=== PATIENT | female | born 1965 | race Two or more races ===

== ENCOUNTER → 2016-04-04 | Outpatient (CLI) | payer MEDICARE, MEDICAID ==
[~2016-04-04] MED LIST: ABIL1TAB5 PO; AMLO5TAB2 PO; BUPIVACAINE HCL 0.25% 30 ML VIAL As Ordered ONE; CYCL10TA PO; CYMB60CA3 PO; FIBE625T PO; HUMA100I3 SC; IBUP80TA PO; INSULADS SC; ISOVUE-M 300 61% 15ML VIAL (Q9967) As Ordered ONE; LIDOCAINE 1% SDV INJ 30 ML VIAL As Ordered ONE; LISI20TA PO; MECL25CH PO; METF1000 PO; METO50TA2 PO; NOVO70VL SC; OMEP20CA3 PO; OXYC10TA12 PO; SIMV20TA2 PO; TRAZ150T14 PO; TRIAMCINOLONE ACETONIDE SUSP 40 MG/ML VIAL (J3301) As Ordered ONE; VITA50003 PO; XIFA550T PO; diazePAM 5 MG TAB As Ordered ONE; oxyCODONE 5MG TAB As Ordered ONE
--- NOTE | 2016-04-04 16:57 | REP ---
SI joint series: Four views. History: Bilateral SI joint injection for pain. 24 seconds of fluoroscopy time is reported. Findings: A sequence of four fluoroscopically obtained intraprocedural spot radiographs document needle position and contrast injection associated with SI joint injection procedure. Signed by Sage Jesus MD 04/05/2016 08:00 A
--- NOTE | 2016-04-08 01:57 | ECWPNPC ---
PATIENT NAME: JAYE STONER : 1965 GENDER: FEMALE VISIT DATE: 04/04/2016 DISCHARGE DATE: 04/04/16 1442 VISIT LOCKED DATE TIME: PHYSICIAN: HERMES GAONA RESOURCE: HERMES GAONA REASON FOR APPOINTMENT 1. SIJ HISTORY OF PRESENT ILLNESS HISTORY OF PRESENT ILLNESS: PAIN THE PATIENT DESCRIBES THE PAIN... FALL RISK SCREENING: SCREENING :NO FALLS IN THE PAST YEAR CURRENT MEDICATIONS TAKING GLYCOLAX POWDER ORALLY TWICE DAILY, NOTES: NONE RECENT TAKING FIBER COMPLETE TABLET ORALLY DAILY, NOTES: 04-03-16 0800 TAKING PROBIOTIC CAPSULE ORALLY DAILY, NOTES: NONE RECENT TAKING METOPROLOL TARTRATE 50 MG TABLET ORALLY TWICE DAILY, NOTES: 04-04-16499 TAKING LIPITOR 20 MG TABLET 1 TABLET ORALLY ONCE A DAY, NOTES: 04-04-16499 TAKING LANTUS 100 UNIT/ML SOLUTION 34 UNITS SUBCUTANEOUS TWICE A DAY, NOTES: 04-04-16429 TAKING SIMVASTATIN 20 MG TABLET 1 TABLET IN THE EVENING ORALLY ONCE A DAY, NOTES: 04-03-16 2100 TAKING LISINOPRIL-HYDROCHLOROTHIAZIDE 20-12.5 MG TABLET 1 TABLET ORALLY ONCE A DAY, NOTES: 04-03-16499 TAKING METFORMIN HCL 1000 MG TABLET 1 TABLET WITH MEALS ORALLY TWICE A DAY, NOTES: 04-04-16429 TAKING LORATADINE 10 MG TABLET 1 TABLET ORALLY ONCE A DAY, NOTES: NONE RECENT TAKING CYMBALTA 30 MG CAPSULE DELAYED RELEASE PARTICLES 1 CAPSULE ORALLY TWICE A DAY, NOTES: 04-03-16 2100 TAKING OMEPRAZOLE 20 MG CAPSULE DELAYED RELEASE 2 CAPSULES ORALLY ONCE A DAY, NOTES: 2 DAYS AGO TAKING MECLIZINE HCL 25 MG TABLET 1 TABLET NEEDED ORALLY ONCE A DAY, NOTES: NONE RECENT TAKING SUCRALFATE 1 GM TABLET 1 TABLET ON AN EMPTY STOMACH ORALLY FOUR TIMES A DAY, NOTES: 3 DAYS AGO TAKING METOCLOPRAMIDE HCL 5 MG TABLET ORALLY THREE TIMES DAILY, NOTES: 2 DAYS AGO TAKING TIZANIDINE HCL 4 MG TABLET 1 TABLET NEEDED ORALLY TWICE DAILY NEEDED, NOTES: NONE RECENT TAKING NOVOLOG FLEXPEN 100 UNIT/ML SOLUTION PEN-INJECTOR SUBCUTANEOUS SLIDING SCALE 3-4 TIMES A DAY, NOTES: 04-03-16 TAKING ALPRAZOLAM 1 MG TABLET 1 TABLET ORALLY DAILY PRN, NOTES: NONE RECENT TAKING DOXEPIN HCL 50 MG CAPSULE 1 CAPSULE AT BEDTIME ORALLY ONCE A DAY, NOTES: 04-03-16 2100 TAKING GABAPENTIN 400 MG CAPSULE 1 CAPSULE ORALLY THREE TIMES A DAY, NOTES: 2 DAYS AGO TAKING TRAMADOL HCL 50 MG TABLET 1-2 ORALLY Q4-6H PRN MDD6, NOTES: 2 DAYS AGO DISCONTINUED ROBAXIN-750 750 MG TABLET 1 TABLET ORALLY Q6H PRN MDD3 DISCONTINUED VALIUM 10 MG TABLET 1 ORALLY 1 TAB 1HR PRE PROC. MDD1, NOTES: 01/25/16 1400 DISCONTINUED OXYCODONE HCL 5 MG TABLET 2 ORALLY 2 TAB 1 HR PRE PROC. MDD2, NOTES: 01/25/16 1400 MEDICATION LIST REVIEWED AND RECONCILED WITH THE PATIENT PAST MEDICAL HISTORY ANXIETY DEPRESSION DM HYPERLIPIDEMIA HTN MIGRAINE UTI VERTIGO DERCUMS DISEASE ALLERGIES SUTURES: INFECTION: ALLERGY TAPE: RASH: ALLERGY SURGICAL HISTORY CARPEL STUART RIGHT HAND X2 RIGHT SHOULDER ROTATOR CUFF REPAIR LEFT ROTATOR CUFF REPAIR X2 REMOVAL RIGHT OVARIAN CYST ABDOMINAL HYSTERECTOMY CHOLECYSTECTOMY FUSION LOW BACK MULTIPLE LIPOMA REMOVAL LAPAROSCOPIES X3 WISDOM TEETH EXTRACTION SOCIAL HISTORY GENERAL: TOBACCO USE ARE YOU A:NONSMOKER LEARNING BARRIERS / SPECIAL NEEDS ORIENTED TO PLAN OF CARE: PATIENT, PAIN MANAGEMENT PATIENT, ORIENTED TO PLAN OF CARE: PATIENT, PAIN MANAGEMENT PATIENT. NEW PATIENT PAIN DIARY TODAY'S VISITNOTES FROM 0-10, WHAT LEVEL IS YOUR PAIN TODAY?0 PAIN CLINIC PFS, CLERGY, PUBLIC HEALTH REFERRALS PFS REFERRAL NEEDED?NO CLERGY REFERRAL NEEDED?NO PUBLIC HEALTH REFERRAL NEEDED?NO WAS THE PROVIDER NOTIFIED OF ANY PERTINENT INFO?NO PFS REFERRAL NEEDED?NO CLERGY REFERRAL NEEDED?NO PUBLIC HEALTH REFERRAL NEEDED?NO WAS THE PROVIDER NOTIFIED OF ANY PERTINENT INFO?NO REVIEW OF SYSTEMS CONSTITUTIONAL: ANY CHANGE IN YOUR MEDICAL CONDITION? NO . CHILLS NO . FEVER NO . INFECTION: DO YOU HAVE NEW INFECTIONS? NO . DO YOU HAVE HISTORY OF MRSA? NO . MUSCULOSKELETAL: ANY NEW PATTERNS OF PAIN OR NUMBNESS? NO . GASTROENTEROLOGY: ANY NEW CHANGE IN BOWEL CONTROL? NO . GENITOURINARY: ANY NEW CHANGE IN BLADDER CONTROL? NO . IS THERE A CHANCE YOU COULD BE ? NO . HEMATOLOGY/LYMPH: DO YOU TAKE ANY BLOOD THINNERS? (FOR EXAMPLE- COUMADIN, PLAVIX, AGGRENOX, PLATEL, PRADAXA, OR XARELTO) NO . WHEN WAS YOUR LAST DOSE? DATE: TIME: . NEUROLOGY: HAVE YOU FALLEN IN THE PAST 6 MONTHS? YES . ANY NEW EXTREMITY NUMBNESS OR WEAKNESS? NO . CARDIOLOGY: DO YOU HAVE A PACEMAKER OR DEFIBRILLATOR? NO . RESPIRATORY: HAVE YOU BEEN SICK IN THE PAST WEEK? NO . FEVER NO . FLU LIKE SYMPTOMS? NO . COUGH NO . INTEGUMENTARY: DO YOU HAVE ANY RASHES OR OPEN SORES? NO . ALLERGIC/IMMUNO: ARE YOU ALLERGIC TO SHELLFISH OR IV DYE? NO . ANY NEW ALLERGIES? NO . PSYCHIATRIC: DO YOU HAVE THOUGHTS OF HURTING YOURSELF OR SOMEONE ELSE? NO . ARE YOU ABUSED, NEGLECTED, OR IN AN UNSAFE ENVIRONMENT? NO . ENDOCRINOLOGY: ARE YOU DIABETIC? YES . OTHER: DO YOU NEED ANY PRESCRIPTIONS? NO . IF YES, PLEASE LIST: ____ . ANY NEW PROBLEMS WITH YOUR MEDICATIONS? NO . WHEN DID YOU LAST EAT? 04-04-1645 . WHEN DID YOU LAST DRINK? 04-04-16619 . WHAT DID YOU LAST DRINK? WATER . NAME OF PERSON DRIVING YOU HOME? NATHAN RELF . DO YOU HAVE ANY OTHER QUESTIONS OR CONCERNS NO . REVIEWED BY: PROVIDER: . VITAL SIGNS WT 205.6 LBS, HT 63.5 IN, BMI 35.85 INDEX, BP 99/57 MM HG, HR 83 /MIN, RR 16 /MIN, TEMP 97.0 F, OXYGEN SAT % 100%, NA INITIALS SC11:19, REVIEWED BY: CMPT'S B/P REPORTED TO DR GAONA AND PT'S C/O FEELING SLIGHTLY DIZZY. STATES TOOK ALL B/P MEDS THIS MORNING. WILL START AN IV AND RUN 500CC LR PER DR GAONA. CM. ASSESSMENTS SACROILIITIS, NOT ELSEWHERE CLASSIFIED - M46.1 (PRIMARY) PROCEDURES PN SI PRE PROCEDURE DIAGNOSIS SACROILIITIS, SACROILIAC JOINT DYSFUNCTION POST PROCEDURE DIAGNOSIS SACROILIITIS, SACROILIAC JOINT DYSFUNCTION PROCEDURE ., BILATERAL SACROILIAC JOINT BLOCK SURGEON DR. HERMES GAONA RADIO RECORDER NONE ANESTHESIA LOCAL PRE PROCEDURE NOTE PATIENT WITH HISTORY OF CHRONIC LOW BACK PAIN. I EVALUATED THE PATIENT AND REVIEWED THE CHART. I WENT OVER THE RISKS, ALTERNATIVES, AND BENEFITS ASSOCIATED WITH THIS PROCEDURE. THE PATIENT WOULD LIKE TO PROCEED AND GAVE CONSENT TO PERFORM THE PROCEDURE. THE PATIENT DENIES UNEXPLAINABLE WEIGHT LOSS, FEVER, CHILLS, OR NEW CHANGES IN URINARY OR BOWEL CONTROL DESCRIPTION OF PROCEDURE THE PATIENT WAS BROUGHT TO THE PROCEDURE ROOM AND PLACED IN THE PRONE POSITION. THE LUMBOSACRAL AREA WAS CLEANED WITH CHLORAPREP SOLUTION AND DRAPED ASEPTICALLY. THE PROCEDURE WAS DONE UNDER STERILE CONDITIONS. I CHECKED LATERALITY AND THE LEVEL WHERE THE PROCEDURE WAS GOING TO BE PERFORMED WITH THE PATIENT AND THE SUPPORTING STAFF AT THE MOMENT OF THE TIME OUT IN THE PROCEDURE ROOM. UNDER FLUOROSCOPIC GUIDANCE, TARGET POINT WAS SELECTED AT THE LOWER BORDER OF THE RIGHT AND LEFT L5-S1 SACROILIAC JOINT. TARGET POINT WAS SELECTED AFTER MEDIAL ROTATION AND TILT OF THE MAGNIFIER OF THE C-ARM. LIDOCAINE WAS USED TO NUMB THE SKIN AND SUBCUTANEOUS TISSUE BELOW IT. A SPINAL NEEDLE, 22-GAUGE, WAS ADVANCED UNDER FLUOROSCOPIC GUIDANCE AND FOLLOWING PATIENT FEEDBACK UNTIL THE TARGET AREA WAS TOUCHED. THE POSITION OF THE NEEDLE WAS VERIFIED WITH AP AND LATERAL VIEWS. AFTER PROPER POSITION OF THE NEEDLE WAS ACHIEVED, ISOVUE M DYE 30%, 0.25 ML, WAS INJECTED SHOWING SPREAD OF THE DYE. THEN, A SOLUTION OF 20 MG OF KENALOG WAS INJECTED IN RIGHT JOINT WITH 3 ML OF BUPIVACAINE 0.125%. THERE WAS NO EVIDENCE OF BLOOD, PARESTHESIA OR CEREBROSPINAL FLUID DURING THE PROCEDURE. THE PATIENT WAS SENT TO THE RECOVERY ROOM. THE PATIENT WAS MOVING THE EXTREMITIES AND DOING WELL. THERE WAS NO COMPLICATION DURING THE PROCEDURE. FLUOROSCOPY TIME WAS 24 SECONDS POST PROCEDURE NOTE THE PATIENT WILL BE SEEN IN A FOLLOW UP IN THE NEXT FEW WEEKS. INSTRUCTIONS WERE GIVEN, QUESTIONS WERE ANSWERED, AND THE PATIENT EXPRESSED UNDERSTANDING AND AGREED WITH THE PLAN. DIAGNOSTIC IMAGING [facility] FLUORO GUIDANCE (PAIN)[id number] PROCEDURE CODES 99614 INJECT SACROILIAC JOINT 6045F RADXPS IN END [id number] PXD FOLLOW UP 3 WEEKS ELECTRONICALLY SIGNED BY HERMES GAONA MD ON 04/07/2016 AT 05:56 PM EST DISCLAIMER : THIS IS A VISIT SUMMARY EXTRACTED FROM THE [email or web address] CHART. IT IS NOT A COPY OF THE [email or web address] PROGRESS NOTE. ISABELLA
== END ==
LOC: M PAIN 10:50
PROVIDERS: ATTEND Anesthesiology
DX: M46.1 Sacroiliitis, not elsewhere classified (principal); M54.5 Low back pain; E11.9 Type 2 diabetes mellitus without complications; G89.29 Other chronic pain; I10 Essential (primary) hypertension; F32.9 Major depressive disorder, single episode, unspecified; F41.9 Anxiety disorder, unspecified; Z79.891 Long term (current) use of opiate analgesic; Z79.84 Long term (current) use of oral hypoglycemic drugs; Z79.4 Long term (current) use of insulin; Z79.899 Other long term (current) drug therapy; Z91.048 Other nonmedicinal substance allergy status
CPT/HCPCS: G0260; J3301; Q9967

== ENCOUNTER → 2016-06-23 | Outpatient (CLI) | payer MEDICARE, MEDICAID ==
[~2016-06-23] MED LIST changes: -BUPIVACAINE HCL 0.25% 30 ML VIAL As Ordered ONE; -ISOVUE-M 300 61% 15ML VIAL (Q9967) As Ordered ONE; -LIDOCAINE 1% SDV INJ 30 ML VIAL As Ordered ONE; -TRIAMCINOLONE ACETONIDE SUSP 40 MG/ML VIAL (J3301) As Ordered ONE; -diazePAM 5 MG TAB As Ordered ONE; -oxyCODONE 5MG TAB As Ordered ONE
--- NOTE | 2016-06-27 00:48 | ECWPNPC ---
PATIENT NAME: JAYE STONER : 1965 GENDER: FEMALE VISIT DATE: 06/23/2016 DISCHARGE DATE: 06/23/16 1220 VISIT LOCKED DATE TIME: PHYSICIAN: FELICIA WALLS RESOURCE: FELICIA WALLS REASON FOR APPOINTMENT 1. BACK HISTORY OF PRESENT ILLNESS HISTORY OF PRESENT ILLNESS: HERE FOR POST PROCEDURE F/U.HAD BILAT. SIJ INJECTIONS 04-04-16.HAD SIGNIFICANT REDUCTION IN PAIN FOR ONE MONTH THEN PAIN GRADUALLY RETURNED TO BASLINE.RATING PAIN VAS 4/10.PAIN IS LOCATED ACROSS LOW BACK AND RADIATES INTO BOTH LEGS. PAIN THE PATIENT DESCRIBES THE PAIN... FALL RISK SCREENING: SCREENING :NO FALLS IN THE PAST YEAR CURRENT MEDICATIONS TAKING GLYCOLAX POWDER ORALLY TWICE DAILY PRN TAKING FIBER COMPLETE TABLET ORALLY DAILY TAKING PROBIOTIC CAPSULE ORALLY DAILY TAKING METOPROLOL TARTRATE 50 MG TABLET ORALLY TWICE DAILY TAKING LIPITOR 20 MG TABLET 1 TABLET ORALLY ONCE A DAY TAKING LANTUS 100 UNIT/ML SOLUTION 34 UNITS SUBCUTANEOUS TWICE A DAY TAKING LISINOPRIL-HYDROCHLOROTHIAZIDE 20-12.5 MG TABLET 1 TABLET ORALLY ONCE A DAY TAKING METFORMIN HCL 1000 MG TABLET 1 TABLET WITH MEALS ORALLY TWICE A DAY TAKING LORATADINE 10 MG TABLET 1 TABLET ORALLY ONCE A DAY TAKING CYMBALTA 30 MG CAPSULE DELAYED RELEASE PARTICLES 1 CAPSULE ORALLY TWICE A DAY TAKING OMEPRAZOLE 20 MG CAPSULE DELAYED RELEASE 2 CAPSULES ORALLY ONCE A DAY TAKING MECLIZINE HCL 25 MG TABLET 1 TABLET NEEDED ORALLY ONCE A DAY TAKING SUCRALFATE 1 GM TABLET 1 TABLET ON AN EMPTY STOMACH ORALLY FOUR TIMES A DAY TAKING METOCLOPRAMIDE HCL 5 MG TABLET ORALLY THREE TIMES DAILY TAKING TIZANIDINE HCL 4 MG TABLET 1 TABLET NEEDED ORALLY TWICE DAILY NEEDED TAKING NOVOLOG FLEXPEN 100 UNIT/ML SOLUTION PEN-INJECTOR SUBCUTANEOUS SLIDING SCALE 3-4 TIMES A DAY TAKING ALPRAZOLAM 1 MG TABLET 1 TABLET ORALLY DAILY PRN TAKING DOXEPIN HCL 50 MG CAPSULE 1 CAPSULE AT BEDTIME ORALLY ONCE A DAY TAKING GABAPENTIN 400 MG CAPSULE 1 CAPSULE ORALLY THREE TIMES A DAY TAKING TRAMADOL HCL 50 MG TABLET 1-2 ORALLY Q4-6H PRN MDD6 DISCONTINUED SIMVASTATIN 20 MG TABLET 1 TABLET IN THE EVENING ORALLY ONCE A DAY MEDICATION LIST REVIEWED AND RECONCILED WITH THE PATIENT PAST MEDICAL HISTORY ANXIETY DEPRESSION DM HYPERLIPIDEMIA HTN MIGRAINE UTI VERTIGO DERCUMS DISEASE ALLERGIES SUTURES: INFECTION: ALLERGY TAPE: RASH: ALLERGY SOCIAL HISTORY GENERAL: TOBACCO USE ARE YOU A:CURRENT SMOKER HOW MANY CIGARETTES A DAY DO YOU SMOKE?6-10 HOW SOON AFTER YOU WAKE UP DO YOU SMOKE YOUR FIRST CIGARETTE?6-30 MIN HOW OFTEN DO YOU SMOKE CIGARETTES?EVERY DAY PATIENT COUNSELED ON THE DANGERS OF TOBACCO USE AND URGED TO QUIT:06/23/2016 ARE YOU INTERESTED IN QUITTING?THINKING ABOUT QUITTING COUNSELED THE PATIENT ON SMOKING CESSATION, EDUCATION [id number] PAIN CLINIC PFS, CLERGY, PUBLIC HEALTH REFERRALS CLERGY REFERRAL NEEDED?NO WAS THE PROVIDER NOTIFIED OF ANY PERTINENT INFO?NO PFS REFERRAL NEEDED?NO PUBLIC HEALTH REFERRAL NEEDED?NO PATIENT: ____. REVIEW OF SYSTEMS CONSTITUTIONAL: ANY CHANGE IN YOUR MEDICAL CONDITION? NO . CHILLS NO . FEVER NO . INFECTION: DO YOU HAVE NEW INFECTIONS? NO . DO YOU HAVE HISTORY OF MRSA? NO . MUSCULOSKELETAL: ANY NEW PATTERNS OF PAIN OR NUMBNESS? YES, PAIN AND TINGLING NOW GOING FROM HER BACK ALL THE WAY TO HER FEET . GASTROENTEROLOGY: ANY NEW CHANGE IN BOWEL CONTROL? NO . GENITOURINARY: ANY NEW CHANGE IN BLADDER CONTROL? NO . IS THERE A CHANCE YOU COULD BE ? NO . HEMATOLOGY/LYMPH: DO YOU TAKE ANY BLOOD THINNERS? (FOR EXAMPLE- COUMADIN, PLAVIX, AGGRENOX, PLATEL, PRADAXA, OR XARELTO) NO . WHEN WAS YOUR LAST DOSE? DATE: TIME: . NEUROLOGY: HAVE YOU FALLEN IN THE PAST 6 MONTHS? YES, APPROX. 1 MONTH AGO. BRUISED BOTH KNEES . ANY NEW EXTREMITY NUMBNESS OR WEAKNESS? NO . CARDIOLOGY: DO YOU HAVE A PACEMAKER OR DEFIBRILLATOR? NO . RESPIRATORY: HAVE YOU BEEN SICK IN THE PAST WEEK? YES . FEVER NO . FLU LIKE SYMPTOMS? NO . COUGH NON-PRODUCTIVE, ON AND OFF X 3 DAYS . INTEGUMENTARY: DO YOU HAVE ANY RASHES OR OPEN SORES? NO . ALLERGIC/IMMUNO: ARE YOU ALLERGIC TO SHELLFISH OR IV DYE? NO . ANY NEW ALLERGIES? NO . PSYCHIATRIC: DO YOU HAVE THOUGHTS OF HURTING YOURSELF OR SOMEONE ELSE? NO . ARE YOU ABUSED, NEGLECTED, OR IN AN UNSAFE ENVIRONMENT? NO . ENDOCRINOLOGY: ARE YOU DIABETIC? YES . OTHER: DO YOU NEED ANY PRESCRIPTIONS? YES . IF YES, PLEASE LIST: ____GABAPENTIN AND TRAMADOL . ANY NEW PROBLEMS WITH YOUR MEDICATIONS? NO . WHEN DID YOU LAST EAT? ____ . WHEN DID YOU LAST DRINK? ____ . WHAT DID YOU LAST DRINK? ____ . NAME OF PERSON DRIVING YOU HOME? ____ . DO YOU HAVE ANY OTHER QUESTIONS OR CONCERNS NO . REVIEWED BY: PROVIDER: FELICIA MARSHALL . VITAL SIGNS WT 208.6 LBS, HT 63.5 IN, BMI 36.37 INDEX, BP 146/85 MM HG, HR 108 /MIN, RR 18 /MIN, TEMP 98.0 F, OXYGEN SAT % 100%, NA INITIALS SC11:02, REVIEWED BY: AD. EXAMINATION GENERAL EXAMINATION: LUNGS:LUNG SOUNDS ARE CLEAR. HEART:HEART RATE REGULAR. MUSCULOSKELETAL:*, PALPATION: POSITIVE FOR PAIN OVER L/S SPINE. POSITIVE FOR PAIN OVER L/S PARSPINALS.POINT TENDERNESS OVER BILAT SIJ.POSITIVE JE TEST BILATMUSCLE STRENGTH TESTING 3/5 RIGHT/ 5/5 LEFT . , PALPATION: POSITIVE FOR PAIN OVER L/S SPINE. POSITIVE FOR PAIN OVER L/S PARSPINALS. DIAGNOSTIC: . DIAGNOSTIC:REVIEWED MRI -. ASSESSMENTS POST LAMINECTOMY SYNDROME - M96.1 (PRIMARY) SACROILIAC JOINT PAIN - M53.3 TREATMENT POST LAMINECTOMY SYNDROME INJECTION ANESTHETIC SACROILIAC JOINTFELICIA WALLS 06/23/2016 11:49:44 AM > BILAT. SIJ NOTES: RECOMMEND CONTINUING GABAPENTIN AND TRAMADOL PER PRIMARY CARE DISCRETION. SACROILIAC JOINT PAIN INJECTION ANESTHETIC SACROILIAC JOINTBARBERFELICIA 06/23/2016 11:49:44 AM > BILAT. SIJ PREVENTIVE MEDICINE PAIN CLINIC TEACHING: PROCEDURE TEACHING PT. DECLINED PRINTED INFORMATION ON SIJ INJECTIONS STATING SHE HAS HAD THEM SEVERAL TIMES AND IS VERY FAMILIAR WITH THEM. PRE-PROCEDURE INSTRUCTIONS REVIEWED WITH PATIENT AND SHE VERBALIZED UNDERSTANDING. PROCEDURE CODES FA211 ESTABILISHED PATIENT [facility] CHARGE DISPOSITION & COMMUNICATION FOLLOW UP 2WK POST (REASON: BILAT SIJ) ELECTRONICALLY SIGNED BY JOANNA PARKS ON 06/26/2016 AT 10:10 AM EDT DISCLAIMER : THIS IS A VISIT SUMMARY EXTRACTED FROM THE [employer] CHART. IT IS NOT A COPY OF THE [email or web address] PROGRESS NOTE. ISABELLA
== END | disposition home or self-care (01) ==
LOC: M PAIN 10:40
PROVIDERS: ATTEND Nurse Practitioner Family
DX: Z09 Encounter for follow-up examination after completed treatment for conditions other than malignant neoplasm (principal); G89.29 Other chronic pain; M96.1 Postlaminectomy syndrome, not elsewhere classified; M53.3 Sacrococcygeal disorders, not elsewhere classified; I10 Essential (primary) hypertension; E11.9 Type 2 diabetes mellitus without complications; F41.9 Anxiety disorder, unspecified; F32.9 Major depressive disorder, single episode, unspecified; E78.5 Hyperlipidemia, unspecified; E88.2 Lipomatosis, not elsewhere classified; Z79.899 Other long term (current) drug therapy; Z79.84 Long term (current) use of oral hypoglycemic drugs; Z79.4 Long term (current) use of insulin; L23.1 Allergic contact dermatitis due to adhesives; Z91.048 Other nonmedicinal substance allergy status; F17.210 Nicotine dependence, cigarettes, uncomplicated

== ENCOUNTER → 2016-07-19 | Outpatient (CLI) | payer MEDICARE, MEDICAID ==
[~2016-07-19] MED LIST changes: +BUPIVACAINE HCL 0.25% 30 ML VIAL As Ordered ONE; +ISOVUE-M 300 61% 15ML VIAL (Q9967) As Ordered ONE; +LIDOCAINE 1% SDV INJ 30 ML VIAL As Ordered ONE; +TRIAMCINOLONE ACETONIDE SUSP 40 MG/ML VIAL (J3301) As Ordered ONE; +diazePAM 5 MG TAB As Ordered ONE; +oxyCODONE 5MG TAB As Ordered ONE
--- NOTE | 2016-07-19 17:37 | REP ---
FLUOROSCOPIC GUIDANCE: The images were reviewed with Dr. Rose. The patient has a history of low back pain. The portable C-Arm was provided in the OR for Dr. Villalba for fluoroscopic guidance. Three intraoperative fluoroscopic spot films were obtained for needle placement verification for bilateral sacroiliac joint injection. The films are on the PACs system and are available for review. 23 seconds of fluoroscopy time was utilized for this procedure. Reviewed by RAMO Isabel 07/20/2016 04:56 PEdited and Signed by Florencio Rose MD 07/20/2016 05:01 P
--- NOTE | 2016-07-24 00:07 | ECWPNPC ---
PATIENT NAME: JAYE STONER : 1965 GENDER: FEMALE VISIT DATE: 07/19/2016 DISCHARGE DATE: 07/19/16 1308 VISIT LOCKED DATE TIME: PHYSICIAN: HERMES GAONA RESOURCE: HERMES GAONA REASON FOR APPOINTMENT 1. BILATERAL SIJ HISTORY OF PRESENT ILLNESS HISTORY OF PRESENT ILLNESS: PAIN THE PATIENT DESCRIBES THE PAIN... FALL RISK SCREENING: SCREENING :NO FALLS IN THE PAST YEAR CURRENT MEDICATIONS TAKING GLYCOLAX POWDER ORALLY TWICE DAILY PRN, NOTES: 07-17-161199 TAKING FIBER COMPLETE TABLET ORALLY DAILY, NOTES: 07-18-161399 TAKING PROBIOTIC CAPSULE ORALLY DAILY, NOTES: 07-18-161399 TAKING METOPROLOL TARTRATE 50 MG TABLET ORALLY TWICE DAILY, NOTES: 07-18-162099 TAKING LIPITOR 20 MG TABLET 1 TABLET ORALLY ONCE A DAY, NOTES: 07-18-162099 TAKING LANTUS 100 UNIT/ML SOLUTION 34 UNITS SUBCUTANEOUS TWICE A DAY, NOTES: 07-18-16899 TAKING LISINOPRIL-HYDROCHLOROTHIAZIDE 20-12.5 MG TABLET 1 TABLET ORALLY ONCE A DAY, NOTES: 07-18-161399 TAKING METFORMIN HCL 1000 MG TABLET 1 TABLET WITH MEALS ORALLY TWICE A DAY, NOTES: 07-18-161399 TAKING LORATADINE 10 MG TABLET 1 TABLET ORALLY ONCE A DAY, NOTES: 1399 TAKING CYMBALTA 30 MG CAPSULE DELAYED RELEASE PARTICLES 1 CAPSULE ORALLY TWICE A DAY, NOTES: 07-18-16899 TAKING OMEPRAZOLE 20 MG CAPSULE DELAYED RELEASE 2 CAPSULES ORALLY ONCE A DAY, NOTES: 07-18-16899 TAKING MECLIZINE HCL 25 MG TABLET 1 TABLET NEEDED ORALLY ONCE A DAY, NOTES: 06-24-16 TAKING SUCRALFATE 1 GM TABLET 1 TABLET ON AN EMPTY STOMACH ORALLY FOUR TIMES A DAY, NOTES: 06-24-16 TAKING METOCLOPRAMIDE HCL 5 MG TABLET ORALLY THREE TIMES DAILY, NOTES: 07-18-162199 TAKING NOVOLOG FLEXPEN 100 UNIT/ML SOLUTION PEN-INJECTOR SUBCUTANEOUS SLIDING SCALE 3-4 TIMES A DAY, NOTES: 07-18-161199 TAKING DOXEPIN HCL 50 MG CAPSULE 1 CAPSULE AT BEDTIME ORALLY ONCE A DAY, NOTES: 07-18-162199 TAKING TRAMADOL HCL 50 MG TABLET 1-2 ORALLY Q4-6H PRN MDD6, NOTES: 07-03-16 TAKING GABAPENTIN 400 MG CAPSULE 1 CAPSULE ORALLY THREE TIMES A DAY, NOTES: 07-03-16 NOT-TAKING TIZANIDINE HCL 4 MG TABLET 1 TABLET NEEDED ORALLY TWICE DAILY NEEDED, NOTES: N NOT-TAKING ALPRAZOLAM 1 MG TABLET 1 TABLET ORALLY DAILY PRN MEDICATION LIST REVIEWED AND RECONCILED WITH THE PATIENT PAST MEDICAL HISTORY ANXIETY DEPRESSION DM HYPERLIPIDEMIA HTN MIGRAINE UTI VERTIGO DERCUMS DISEASE ALLERGIES SUTURES: INFECTION: ALLERGY TAPE: RASH: ALLERGY SOCIAL HISTORY GENERAL: PAIN CLINIC PFS, CLERGY, PUBLIC HEALTH REFERRALS CLERGY REFERRAL NEEDED?NO WAS THE PROVIDER NOTIFIED OF ANY PERTINENT INFO?NO PFS REFERRAL NEEDED?NO PUBLIC HEALTH REFERRAL NEEDED?NO PATIENT: ____. REVIEW OF SYSTEMS CONSTITUTIONAL: ANY CHANGE IN YOUR MEDICAL CONDITION? NO . CHILLS NO . FEVER NO . INFECTION: DO YOU HAVE NEW INFECTIONS? NO . DO YOU HAVE HISTORY OF MRSA? NO . MUSCULOSKELETAL: ANY NEW PATTERNS OF PAIN OR NUMBNESS? NO . GASTROENTEROLOGY: ANY NEW CHANGE IN BOWEL CONTROL? NO . GENITOURINARY: ANY NEW CHANGE IN BLADDER CONTROL? NO . IS THERE A CHANCE YOU COULD BE ? NO . HEMATOLOGY/LYMPH: DO YOU TAKE ANY BLOOD THINNERS? (FOR EXAMPLE- COUMADIN, PLAVIX, AGGRENOX, PLATEL, PRADAXA, OR XARELTO) NO . WHEN WAS YOUR LAST DOSE? DATE: TIME: . NEUROLOGY: HAVE YOU FALLEN IN THE PAST 6 MONTHS? NO . ANY NEW EXTREMITY NUMBNESS OR WEAKNESS? NO . CARDIOLOGY: DO YOU HAVE A PACEMAKER OR DEFIBRILLATOR? NO . RESPIRATORY: HAVE YOU BEEN SICK IN THE PAST WEEK? NO . FEVER NO . FLU LIKE SYMPTOMS? NO . COUGH NO . INTEGUMENTARY: DO YOU HAVE ANY RASHES OR OPEN SORES? NO . ALLERGIC/IMMUNO: ARE YOU ALLERGIC TO SHELLFISH OR IV DYE? NO . ANY NEW ALLERGIES? NO . PSYCHIATRIC: DO YOU HAVE THOUGHTS OF HURTING YOURSELF OR SOMEONE ELSE? NO . ARE YOU ABUSED, NEGLECTED, OR IN AN UNSAFE ENVIRONMENT? NO . ENDOCRINOLOGY: ARE YOU DIABETIC? YES . OTHER: DO YOU NEED ANY PRESCRIPTIONS? NO . IF YES, PLEASE LIST: ____ . ANY NEW PROBLEMS WITH YOUR MEDICATIONS? NO . WHEN DID YOU LAST EAT? ____YESTERDAY 2100 . WHEN DID YOU LAST DRINK? ____0800 . WHAT DID YOU LAST DRINK? ____WATER . NAME OF PERSON DRIVING YOU HOME? ____KRISONDRA . DO YOU HAVE ANY OTHER QUESTIONS OR CONCERNS NO . REVIEWED BY: PROVIDER: . VITAL SIGNS WT 198.8 LBS, HT 63.5 IN, BMI 34.66 INDEX, BP 110/67 MM HG, HR 95 /MIN, RR 16 /MIN, TEMP 98.0 F, OXYGEN SAT % 100%, NA INITIALS SC 10:35, REVIEWED BY: KG. ASSESSMENTS SACROILIITIS, NOT ELSEWHERE CLASSIFIED - M46.1 (PRIMARY) PROCEDURES PN SI PRE PROCEDURE DIAGNOSIS SACROILIITIS, SACROILIAC JOINT DYSFUNCTION POST PROCEDURE DIAGNOSIS SACROILIITIS, SACROILIAC JOINT DYSFUNCTION PROCEDURE BILATERAL SACROILIAC JOINT BLOCK SURGEON DR. HERMES GAONA AERODYNAMICS PROFESSOR NONE ANESTHESIA LOCAL PRE PROCEDURE NOTE PATIENT WITH HISTORY OF CHRONIC LOW BACK PAIN. I EVALUATED THE PATIENT AND REVIEWED THE CHART. I WENT OVER THE RISKS, ALTERNATIVES, AND BENEFITS ASSOCIATED WITH THIS PROCEDURE. THE PATIENT WOULD LIKE TO PROCEED AND GAVE CONSENT TO PERFORM THE PROCEDURE. THE PATIENT DENIES UNEXPLAINABLE WEIGHT LOSS, FEVER, CHILLS, OR NEW CHANGES IN URINARY OR BOWEL CONTROL DESCRIPTION OF PROCEDURE THE PATIENT WAS BROUGHT TO THE PROCEDURE ROOM AND PLACED IN THE PRONE POSITION. THE LUMBOSACRAL AREA WAS CLEANED WITH CHLORAPREP SOLUTION AND DRAPED ASEPTICALLY. THE PROCEDURE WAS DONE UNDER STERILE CONDITIONS. I CHECKED LATERALITY AND THE LEVEL WHERE THE PROCEDURE WAS GOING TO BE PERFORMED WITH THE PATIENT AND THE SUPPORTING STAFF AT THE MOMENT OF THE TIME OUT IN THE PROCEDURE ROOM. UNDER FLUOROSCOPIC GUIDANCE, TARGET POINT WAS SELECTED AT THE LOWER BORDER OF THE RIGHT AND LEFT SACROILIAC JOINT. TARGET POINT WAS SELECTED AFTER MEDIAL ROTATION AND TILT OF THE MAGNIFIER OF THE C-ARM. LIDOCAINE WAS USED TO NUMB THE SKIN AND SUBCUTANEOUS TISSUE BELOW IT. A SPINAL NEEDLE, 22-GAUGE, WAS ADVANCED UNDER FLUOROSCOPIC GUIDANCE AND FOLLOWING PATIENT FEEDBACK UNTIL THE TARGET AREA WAS TOUCHED. THE POSITION OF THE NEEDLE WAS VERIFIED WITH AP AND LATERAL VIEWS. AFTER PROPER POSITION OF THE NEEDLE WAS ACHIEVED, ISOVUE M DYE 30%, 0.25 ML, WAS INJECTED SHOWING SPREAD OF THE DYE. THEN, A SOLUTION OF 20 MG OF KENALOG WAS INJECTED IN RIGHT JOINT WITH 3 ML OF BUPIVACAINE 0.125%. THERE WAS NO EVIDENCE OF BLOOD, PARESTHESIA OR CEREBROSPINAL FLUID DURING THE PROCEDURE. THE PATIENT WAS SENT TO THE RECOVERY ROOM. THE PATIENT WAS MOVING THE EXTREMITIES AND DOING WELL. THERE WAS NO COMPLICATION DURING THE PROCEDURE. FLUOROSCOPY TIME WAS 23 SECONDS POST PROCEDURE NOTE THE PATIENT WILL BE SEEN IN A FOLLOW UP IN THE NEXT FEW WEEKS. INSTRUCTIONS WERE GIVEN, QUESTIONS WERE ANSWERED, AND THE PATIENT EXPRESSED UNDERSTANDING AND AGREED WITH THE PLAN. INSTRUCTIONS WERE GIVEN, QUESTIONS WERE ANSWERED, PATIENT REPORTS UNDERSTANDING AND AGREES WITH THE PLAN. I, PRERNA CHURCH, DOCUMENTED THE ABOVE INFORMATION ACTING A SCRIBE FOR DR. GAONA. I HAVE REVIEWED THE ABOVE DOCUMENT, WRITTEN BY PRERNA GUERRERO AND I VERIFY THAT IT IS [facility] DIAGNOST[facility]AGING [facility] GUIDANCE (PAIN)[id number] PROCEDURE CODES 27742 INJECT SACROILIAC JOINT 6045F RADXPS IN END [id number] PXD DISPOSITION & COMMUNICATION FOLLOW UP 3 WEEKS ELECTRONICALLY SIGNED BY HERMES GAONA MD ON 07/23/2016 AT 12:28 PM EDT DISCLAIMER : THIS IS A VISIT SUMMARY EXTRACTED FROM THE [employer] CHART. IT IS NOT A COPY OF THE [employer] PROGRESS NOTE. ISABELLA
== END | disposition home or self-care (01) ==
LOC: M PAIN 10:20
PROVIDERS: ATTEND Anesthesiology
DX: G89.29 Other chronic pain (principal); M46.1 Sacroiliitis, not elsewhere classified; I10 Essential (primary) hypertension; E11.9 Type 2 diabetes mellitus without complications; F41.9 Anxiety disorder, unspecified; F33.9 Major depressive disorder, recurrent, unspecified; E78.5 Hyperlipidemia, unspecified; G43.909 Migraine, unspecified, not intractable, without status migrainosus; Z79.899 Other long term (current) drug therapy; Z79.4 Long term (current) use of insulin; Z79.84 Long term (current) use of oral hypoglycemic drugs; L23.1 Allergic contact dermatitis due to adhesives
CPT/HCPCS: G0260; J3301; Q9967

== ENCOUNTER → 2016-08-09 | Outpatient (CLI) | payer MEDICARE, MEDICAID ==
[~2016-08-09] MED LIST changes: -BUPIVACAINE HCL 0.25% 30 ML VIAL As Ordered ONE; -ISOVUE-M 300 61% 15ML VIAL (Q9967) As Ordered ONE; -LIDOCAINE 1% SDV INJ 30 ML VIAL As Ordered ONE; -TRIAMCINOLONE ACETONIDE SUSP 40 MG/ML VIAL (J3301) As Ordered ONE; -diazePAM 5 MG TAB As Ordered ONE; -oxyCODONE 5MG TAB As Ordered ONE
--- NOTE | 2016-08-24 00:01 | ECWPNPC ---
PATIENT NAME: JAYE STONER : 1965 GENDER: FEMALE VISIT DATE: 08/09/2016 DISCHARGE DATE: 08/09/16 1037 VISIT LOCKED DATE TIME: PHYSICIAN: FELICIA WALLS RESOURCE: FELICIA WALLS REASON FOR APPOINTMENT 1. POST SIJ HISTORY OF PRESENT ILLNESS HISTORY OF PRESENT ILLNESS: HERE FOR POST PROCEDURE F/U.HAD BILATERAL SIJ 07-19-16.REPORTS >75% IMPROVEMENT POST PROCEDURE.DESCRIBES PAIN CONSTANT ACHING AND BURNING. RATING PAIN VAS 4/10.USING TRAMADOL 4-6 TABLETS PER DAY.DIDNT BRING HER MEDICATION WITH HER. PAIN THE PATIENT DESCRIBES THE PAIN... FALL RISK SCREENING: SCREENING :NO FALLS IN THE PAST YEAR CURRENT MEDICATIONS TAKING GLYCOLAX POWDER ORALLY TWICE DAILY PRN, NOTES: [id number] TAKING FIBER COMPLETE TABLET ORALLY DAILY, NOTES: 07-18-161399 TAKING PROBIOTIC CAPSULE ORALLY DAILY, NOTES: 07-18-161399 TAKING METOPROLOL TARTRATE 50 MG TABLET ORALLY TWICE DAILY, NOTES: 07-18-162099 TAKING LIPITOR 20 MG TABLET 1 TABLET ORALLY ONCE A DAY, NOTES: 07-18-162099 TAKING LANTUS 100 UNIT/ML SOLUTION 34 UNITS SUBCUTANEOUS TWICE A DAY, NOTES: 07-18-16899 TAKING LISINOPRIL-HYDROCHLOROTHIAZIDE 20-12.5 MG TABLET 1 TABLET ORALLY ONCE A DAY, NOTES: 07-18-161399 TAKING METFORMIN HCL 1000 MG TABLET 1 TABLET WITH MEALS ORALLY TWICE A DAY, NOTES: 07-18-161399 TAKING LORATADINE 10 MG TABLET 1 TABLET ORALLY ONCE A DAY, NOTES: 1399 TAKING CYMBALTA 30 MG CAPSULE DELAYED RELEASE PARTICLES 1 CAPSULE ORALLY TWICE A DAY, NOTES: 07-18-16899 TAKING OMEPRAZOLE 20 MG CAPSULE DELAYED RELEASE 2 CAPSULES ORALLY ONCE A DAY, NOTES: 07-18-16899 TAKING MECLIZINE HCL 25 MG TABLET 1 TABLET NEEDED ORALLY ONCE A DAY, NOTES: 06-24-16 TAKING SUCRALFATE 1 GM TABLET 1 TABLET ON AN EMPTY STOMACH ORALLY FOUR TIMES A DAY, NOTES: 06-24-16 TAKING METOCLOPRAMIDE HCL 5 MG TABLET ORALLY THREE TIMES DAILY, NOTES: 07-18-162199 TAKING NOVOLOG FLEXPEN 100 UNIT/ML SOLUTION PEN-INJECTOR SUBCUTANEOUS SLIDING SCALE 3-4 TIMES A DAY, NOTES: 4-25-17 1200 TAKING DOXEPIN HCL 50 MG CAPSULE 1 CAPSULE AT BEDTIME ORALLY ONCE A DAY, NOTES: 07-18-16 2200 TAKING TRAMADOL HCL 50 MG TABLET 1-2 ORALLY Q4-6H PRN MDD6, NOTES: 07-03-16 TAKING GABAPENTIN 400 MG CAPSULE 1 CAPSULE ORALLY THREE TIMES A DAY, NOTES: 07-03-16 NOT-TAKING TIZANIDINE HCL 4 MG TABLET 1 TABLET NEEDED ORALLY TWICE DAILY NEEDED, NOTES: N NOT-TAKING ALPRAZOLAM 1 MG TABLET 1 TABLET ORALLY DAILY PRN MEDICATION LIST REVIEWED AND RECONCILED WITH THE PATIENT PAST MEDICAL HISTORY ANXIETY DEPRESSION DM HYPERLIPIDEMIA HTN MIGRAINE UTI VERTIGO DERCUMS DISEASE ALLERGIES SUTURES: INFECTION: ALLERGY TAPE: RASH: ALLERGY SURGICAL HISTORY CARPEL STUART RIGHT HAND X2 RIGHT SHOULDER ROTATOR CUFF REPAIR LEFT ROTATOR CUFF REPAIR X2 REMOVAL RIGHT OVARIAN CYST ABDOMINAL HYSTERECTOMY CHOLECYSTECTOMY FUSION LOW BACK MULTIPLE LIPOMA REMOVAL LAPAROSCOPIES X3 WISDOM TEETH EXTRACTION REVIEW OF SYSTEMS CONSTITUTIONAL: ANY CHANGE IN YOUR MEDICAL CONDITION? NO . CHILLS NO . FEVER NO . INFECTION: DO YOU HAVE NEW INFECTIONS? NO . DO YOU HAVE HISTORY OF MRSA? NO . MUSCULOSKELETAL: ANY NEW PATTERNS OF PAIN OR NUMBNESS? NO. PT HERE FOR F/U SIJ PT STATES SOME PAIN RELIEF 07/03. . GASTROENTEROLOGY: ANY NEW CHANGE IN BOWEL CONTROL? NO . GENITOURINARY: ANY NEW CHANGE IN BLADDER CONTROL? NO . IS THERE A CHANCE YOU COULD BE ? NO . HEMATOLOGY/LYMPH: DO YOU TAKE ANY BLOOD THINNERS? (FOR EXAMPLE- COUMADIN, PLAVIX, AGGRENOX, PLATEL, PRADAXA, OR XARELTO) NO . WHEN WAS YOUR LAST DOSE? DATE: TIME: . NEUROLOGY: HAVE YOU FALLEN IN THE PAST 6 MONTHS? NO . ANY NEW EXTREMITY NUMBNESS OR WEAKNESS? NO . CARDIOLOGY: DO YOU HAVE A PACEMAKER OR DEFIBRILLATOR? NO . RESPIRATORY: HAVE YOU BEEN SICK IN THE PAST WEEK? NO . FEVER NO . FLU LIKE SYMPTOMS? NO . COUGH NO . INTEGUMENTARY: DO YOU HAVE ANY RASHES OR OPEN SORES? NO . ALLERGIC/IMMUNO: ARE YOU ALLERGIC TO SHELLFISH OR IV DYE? NO . ANY NEW ALLERGIES? NO . PSYCHIATRIC: DO YOU HAVE THOUGHTS OF HURTING YOURSELF OR SOMEONE ELSE? NO . ARE YOU ABUSED, NEGLECTED, OR IN AN UNSAFE ENVIRONMENT? NO . ENDOCRINOLOGY: ARE YOU DIABETIC? NO . OTHER: DO YOU NEED ANY PRESCRIPTIONS? NO . IF YES, PLEASE LIST: ____ . ANY NEW PROBLEMS WITH YOUR MEDICATIONS? NO . WHEN DID YOU LAST EAT? ____ . WHEN DID YOU LAST DRINK? ____ . WHAT DID YOU LAST DRINK? ____ . NAME OF PERSON DRIVING YOU HOME? ____ . DO YOU HAVE ANY OTHER QUESTIONS OR CONCERNS NO . REVIEWED BY: PROVIDER: FELICIA MARSHALL . VITAL SIGNS WT 198.2 LBS, HT 63.5 IN, BMI 34.56 INDEX, BP 139/76 MM HG, HR 102 /MIN, RR 18 /MIN, TEMP 98.7 F, OXYGEN SAT % 98%, SAFE IN ENV? (Y/N) Y, NA INITIALS TL 1009, REVIEWED BY: EM. EXAMINATION GENERAL EXAMINATION: LUNGS:LUNG SOUNDS ARE CLEAR. HEART:HEART RATE REGULAR. MUSCULOSKELETAL:*, PALPATION: POSITIVE FOR PAIN OVER L/S SPINE. POSITIVE FOR PAIN OVER L/S PARSPINALS.POINT TENDERNESS OVER BILAT SIJ.POSITIVE JE TEST BILATMUSCLE STRENGTH TESTING 3/5 RIGHT/ 5/5 LEFT . , PALPATION: POSITIVE FOR PAIN OVER L/S SPINE. POSITIVE FOR PAIN OVER L/S PARSPINALS. DIAGNOSTIC: . DIAGNOSTIC:REVIEWED MRI -. ASSESSMENTS POST LAMINECTOMY SYNDROME - M96.1 (PRIMARY) SACROILIAC JOINT PAIN - M53.3 TREATMENT POST LAMINECTOMY SYNDROME CONTINUE TRAMADOL HCL TABLET, 50 MG, 1-2, ORALLY, Q4-6H PRN MDD6, NOTES: 07-03-16 CONTINUE GABAPENTIN CAPSULE, 400 MG, 1 CAPSULE, ORALLY, THREE TIMES A DAY, NOTES: 07-03-16 PROCEDURE CODES FA211 ESTABILISHED PATIENT [facility] CHARGE DISPOSITION & COMMUNICATION FOLLOW UP 2 WEEKS ELECTRONICALLY SIGNED BY JOANNA PARKS ON 08/23/2016 AT 02:08 PM EDT DISCLAIMER : THIS IS A VISIT SUMMARY EXTRACTED FROM THE [employer] CHART. IT IS NOT A COPY OF THE [employer] PROGRESS NOTE. MTDD
== END | disposition home or self-care (01) ==
LOC: M PAIN 09:40
PROVIDERS: ATTEND Nurse Practitioner Family
DX: G89.29 Other chronic pain (principal); M96.1 Postlaminectomy syndrome, not elsewhere classified; M53.3 Sacrococcygeal disorders, not elsewhere classified; F41.9 Anxiety disorder, unspecified; F33.9 Major depressive disorder, recurrent, unspecified; E11.9 Type 2 diabetes mellitus without complications; E78.5 Hyperlipidemia, unspecified; I10 Essential (primary) hypertension; G43.909 Migraine, unspecified, not intractable, without status migrainosus; E88.2 Lipomatosis, not elsewhere classified; Z79.899 Other long term (current) drug therapy; Z79.84 Long term (current) use of oral hypoglycemic drugs; Z79.4 Long term (current) use of insulin; L23.1 Allergic contact dermatitis due to adhesives; L23.89 Allergic contact dermatitis due to other agents

== ENCOUNTER → 2016-09-27 | Outpatient (CLI) | payer MEDICARE, MEDICAID ==
[~2016-09-27] MED LIST changes: +ABIL10TA9 PO; -ABIL1TAB5 PO; +MECL1CHW2 PO; -MECL25CH PO; -METF1000 PO; +METF10004 PO; -METO50TA2 PO; +METO50TA7 PO; -TRAZ150T14 PO; +TRAZ1TAB14 PO; +VITA1CAP40 PO; -VITA50003 PO
--- NOTE | 2016-10-03 00:24 | ECWPNPC ---
PATIENT NAME: JAYE STONER : 1965 GENDER: FEMALE VISIT DATE: 09/27/2016 DISCHARGE DATE: 09/27/16 1545 VISIT LOCKED DATE TIME: PHYSICIAN: FELICIA WALLS RESOURCE: FELICIA WALLS REASON FOR APPOINTMENT 1. BACK HISTORY OF PRESENT ILLNESS HISTORY OF PRESENT ILLNESS: HERE FOR F/U AND MANAGEMENT OF CHRONIC LOW BACK PAIN.FELL RECENTLY AND HAS HAD AGGREVATION IN LOW BACK PAIN.RATING PAIN VAS 9/10.DESCRIBES PAIN CONSTANT AND SORE.PAIN IS LOCATED IN USUAL LOW BACK AREA WITHOUT RADICULAR SYMPTOMS.HAS RESPONDED WELL TO SIJ INJECTIONS IN PAST.DENIES RECENT FEVER.REPORTING NORMAL BOWEL AND BLADDER FUNCTION. PAIN THE PATIENT DESCRIBES THE PAIN... FALL RISK SCREENING: SCREENING :NO FALLS IN THE PAST YEAR CURRENT MEDICATIONS TAKING GLYCOLAX POWDER ORALLY TWICE DAILY PRN, NOTES: [id number] TAKING FIBER COMPLETE TABLET ORALLY DAILY, NOTES: 07-18-161399 TAKING PROBIOTIC CAPSULE ORALLY DAILY, NOTES: 07-18-161399 TAKING METOPROLOL TARTRATE 50 MG TABLET ORALLY TWICE DAILY, NOTES: 07-18-162099 TAKING LIPITOR 20 MG TABLET 1 TABLET ORALLY ONCE A DAY, NOTES: 07-18-162099 TAKING LANTUS 100 UNIT/ML SOLUTION 34 UNITS SUBCUTANEOUS TWICE A DAY, NOTES: 07-18-16899 TAKING LISINOPRIL-HYDROCHLOROTHIAZIDE 20-12.5 MG TABLET 1 TABLET ORALLY ONCE A DAY, NOTES: 07-18-161399 TAKING METFORMIN HCL 1000 MG TABLET 1 TABLET WITH MEALS ORALLY TWICE A DAY, NOTES: 07-18-161399 TAKING LORATADINE 10 MG TABLET 1 TABLET ORALLY ONCE A DAY, NOTES: 1399 TAKING CYMBALTA 30 MG CAPSULE DELAYED RELEASE PARTICLES 1 CAPSULE ORALLY TWICE A DAY, NOTES: 07-18-16899 TAKING OMEPRAZOLE 20 MG CAPSULE DELAYED RELEASE 2 CAPSULES ORALLY ONCE A DAY, NOTES: 07-18-16899 TAKING MECLIZINE HCL 25 MG TABLET 1 TABLET NEEDED ORALLY ONCE A DAY, NOTES: 06-24-16 TAKING SUCRALFATE 1 GM TABLET 1 TABLET ON AN EMPTY STOMACH ORALLY FOUR TIMES A DAY, NOTES: 06-24-16 TAKING METOCLOPRAMIDE HCL 5 MG TABLET ORALLY THREE TIMES DAILY, NOTES: 07-18-162199 TAKING NOVOLOG FLEXPEN 100 UNIT/ML SOLUTION PEN-INJECTOR SUBCUTANEOUS SLIDING SCALE 3-4 TIMES A DAY, NOTES: 07-18-16 1200 TAKING DOXEPIN HCL 50 MG CAPSULE 1 CAPSULE AT BEDTIME ORALLY ONCE A DAY, NOTES: 07-18-16 2200 TAKING TRAMADOL HCL 50 MG TABLET 1-2 ORALLY Q4-6H PRN MDD6, NOTES: 07-03-16 TAKING GABAPENTIN 400 MG CAPSULE 1 CAPSULE ORALLY THREE TIMES A DAY, NOTES: 07-03-16 NOT-TAKING TIZANIDINE HCL 4 MG TABLET 1 TABLET NEEDED ORALLY TWICE DAILY NEEDED, NOTES: N NOT-TAKING ALPRAZOLAM 1 MG TABLET 1 TABLET ORALLY DAILY PRN MEDICATION LIST REVIEWED AND RECONCILED WITH THE PATIENT PAST MEDICAL HISTORY ANXIETY DEPRESSION DM HYPERLIPIDEMIA HTN MIGRAINE UTI VERTIGO DERCUMS DISEASE ALLERGIES SUTURES: INFECTION: ALLERGY TAPE: RASH: ALLERGY REVIEW OF SYSTEMS REVIEWED BY: PROVIDER: FELICIA MARSHALL . CONSTITUTIONAL: ANY CHANGE IN YOUR MEDICAL CONDITION? YES PT WENT TO THE ED FOR A LARGE CUT IN HER FOOT (THINKS SHE STEPPED ON A STAPLE) 07/2016, SHE WAS ADMITTED FOR OPEN SORE AFTER BEING DISCHARGED, PT HAD SOME CONTINUED DIZZINESS, AFTER TWO WEEKS HER VISITNG NURSE SENT HER TO THE HOSPITAL WHERE SHE HAD A BRAIN SCAN DONE. BRAIN SCAN WAS NEGATIVE, BUT DIZZINESS WAS FELT TO BE DUE TO DEHYDRATION. . CHILLS NO . FEVER NO . INFECTION: DO YOU HAVE NEW INFECTIONS? NO . DO YOU HAVE HISTORY OF MRSA? NO . MUSCULOSKELETAL: ANY NEW PATTERNS OF PAIN OR NUMBNESS? NO . GASTROENTEROLOGY: ANY NEW CHANGE IN BOWEL CONTROL? NO . GENITOURINARY: ANY NEW CHANGE IN BLADDER CONTROL? NO . IS THERE A CHANCE YOU COULD BE ? NO . HEMATOLOGY/LYMPH: DO YOU TAKE ANY BLOOD THINNERS? (FOR EXAMPLE- COUMADIN, PLAVIX, AGGRENOX, PLATEL, PRADAXA, OR XARELTO) NO . WHEN WAS YOUR LAST DOSE? DATE: TIME: . NEUROLOGY: HAVE YOU FALLEN IN THE PAST 6 MONTHS? YES FALLEN X 2 IN PAST WEEK, PT REPORTS SHE HAS A SPECIAL SHOE THAT &QUOT;ROCKS&QUOT; AND IT MADE HER LOSE HER BALANCE AND FALL. FEELS THAT THIS HAS AGGRAVATED HER BACK PAIN, NO OTHER INJURIES FROM FALL OTHER THAN SCRAPED KNEES. . ANY NEW EXTREMITY NUMBNESS OR WEAKNESS? NO . CARDIOLOGY: DO YOU HAVE A PACEMAKER OR DEFIBRILLATOR? NO . RESPIRATORY: HAVE YOU BEEN SICK IN THE PAST WEEK? YES . FEVER NO . FLU LIKE SYMPTOMS? NO . COUGH NO . INTEGUMENTARY: DO YOU HAVE ANY RASHES OR OPEN SORES? YES BEING TREATED FOR A SORE ON HER FOOT . ALLERGIC/IMMUNO: ARE YOU ALLERGIC TO SHELLFISH OR IV DYE? NO . ANY NEW ALLERGIES? NO . PSYCHIATRIC: DO YOU HAVE THOUGHTS OF HURTING YOURSELF OR SOMEONE ELSE? NO . ARE YOU ABUSED, NEGLECTED, OR IN AN UNSAFE ENVIRONMENT? NO . ENDOCRINOLOGY: ARE YOU DIABETIC? YES . OTHER: DO YOU NEED ANY PRESCRIPTIONS? NO . IF YES, PLEASE LIST: ____ . ANY NEW PROBLEMS WITH YOUR MEDICATIONS? NO . WHEN DID YOU LAST EAT? ____ . WHEN DID YOU LAST DRINK? ____ . WHAT DID YOU LAST DRINK? ____ . NAME OF PERSON DRIVING YOU HOME? ____ . DO YOU HAVE ANY OTHER QUESTIONS OR CONCERNS NO . VITAL SIGNS WT 197 LBS, HT 63.5 IN, BMI 34.35 INDEX, BP 102/52 MM HG, HR 86 /MIN, RR 18 /MIN, TEMP 97.3 F, OXYGEN SAT % 98%, SAFE IN ENV? (Y/N) YES, REVIEWED BY: LES. EXAMINATION GENERAL EXAMINATION: LUNGS:LUNG SOUNDS ARE CLEAR. HEART:HEART RATE REGULAR. MUSCULOSKELETAL:*, PALPATION: POSITIVE FOR PAIN OVER L/S SPINE. POSITIVE FOR PAIN OVER L/S PARSPINALS.POINT TENDERNESS OVER BILAT SIJ.POSITIVE JE TEST BILATMUSCLE STRENGTH TESTING 3/5 RIGHT/ 5/5 LEFT . , PALPATION: POSITIVE FOR PAIN OVER L/S SPINE. POSITIVE FOR PAIN OVER L/S PARSPINALS. DIAGNOSTIC: . DIAGNOSTIC:REVIEWED MRI -. ASSESSMENTS POST LAMINECTOMY SYNDROME - M96.1 (PRIMARY) SACROILIAC JOINT PAIN - M53.3 TREATMENT POST LAMINECTOMY SYNDROME REFILL TRAMADOL HCL TABLET, 50 MG, 1-2, ORALLY, Q4-6H PRN MDD6, 30 DAY(S), 180, REFILLS 2, NOTES: 07-03-16 CONTINUE GABAPENTIN CAPSULE, 400 MG, 1 CAPSULE, ORALLY, THREE TIMES A DAY, 30 DAY(S), 90 CAPSULE, REFILLS 2, NOTES: 07-03-16 NOTES: BILAT. SIJ. PROCEDURE CODES FA211 ESTABILISHED PATIENT [facility] CHARGE DISPOSITION & COMMUNICATION FOLLOW UP 2WK POST (REASON: BILAT. SIJ) ELECTRONICALLY SIGNED BY JOANNA PARKS ON 10/02/2016 AT 06:27 PM EDT DISCLAIMER : THIS IS A VISIT SUMMARY EXTRACTED FROM THE [employer] CHART. IT IS NOT A COPY OF THE [employer] PROGRESS NOTE. ISABELLA
== END | disposition home or self-care (01) ==
LOC: M PAIN 14:40
PROVIDERS: ATTEND Nurse Practitioner Family
DX: G89.29 Other chronic pain (principal); M96.1 Postlaminectomy syndrome, not elsewhere classified; M53.3 Sacrococcygeal disorders, not elsewhere classified; F41.9 Anxiety disorder, unspecified; F33.9 Major depressive disorder, recurrent, unspecified; E11.9 Type 2 diabetes mellitus without complications; E78.5 Hyperlipidemia, unspecified; I10 Essential (primary) hypertension; G43.909 Migraine, unspecified, not intractable, without status migrainosus; E88.2 Lipomatosis, not elsewhere classified; Z79.899 Other long term (current) drug therapy; Z79.4 Long term (current) use of insulin; Z79.84 Long term (current) use of oral hypoglycemic drugs; L23.1 Allergic contact dermatitis due to adhesives; L23.89 Allergic contact dermatitis due to other agents

== ENCOUNTER → 2016-10-25 | Outpatient (CLI) | payer MEDICARE, MEDICAID ==
[~2016-10-25] MED LIST changes: +BUPIVACAINE HCL 0.25% 30 ML VIAL As Ordered ONE; +ISOVUE-M 300 61% 15ML VIAL (Q9967) As Ordered ONE; +LIDOCAINE 1% SDV INJ 30 ML VIAL As Ordered ONE; +TRIAMCINOLONE ACETONIDE SUSP 40 MG/ML VIAL (J3301) As Ordered ONE; +diazePAM 5 MG TAB As Ordered ONE; +oxyCODONE 5MG TAB As Ordered ONE
--- NOTE | 2016-10-25 17:12 | REP ---
FLUOROSCOPIC GUIDANCE: The images were reviewed with Dr. Beckman. The patient has a history of chronic low back pain. The portable C-ARM was provided in the OR by Dr. Villalba for fluoroscopic guidance. 4 intraoperative fluoroscopic spot films were obtained using last image hold technology for needle placement verification for bilateral SI joint injection. The films are on the PACS system and are available for review. 21 seconds of fluoroscopic time was utilized for this procedure. Reviewed by RAMO Isabel 10/26/2016 05:45 PEdited and Signed by Paolo Beckman MD 10/26/2016 06:49 P
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
== END | disposition home or self-care (01) ==
LOC: M PAIN 11:00
PROVIDERS: ATTEND Anesthesiology
DX: G89.29 Other chronic pain (principal); M46.1 Sacroiliitis, not elsewhere classified; F41.9 Anxiety disorder, unspecified; F33.9 Major depressive disorder, recurrent, unspecified; E11.9 Type 2 diabetes mellitus without complications; E78.5 Hyperlipidemia, unspecified; I10 Essential (primary) hypertension; G43.909 Migraine, unspecified, not intractable, without status migrainosus; Z87.440 Personal history of urinary (tract) infections; E88.2 Lipomatosis, not elsewhere classified; Z79.899 Other long term (current) drug therapy; Z79.4 Long term (current) use of insulin; L23.1 Allergic contact dermatitis due to adhesives
CPT/HCPCS: G0260; J3301; Q9967